=== PATIENT | female | born 1980 | race Caucasian/White ===

== ENCOUNTER 2018-04-13 20:35 | Emergency (ER) | payer OTHER, MEDICAID, BC ==
[2018-04-13 21:40] LABS: BASO % 0.4 % (0.0-1.0); EOS # 0.1 10^3/uL (0.0-0.50); HEMATOCRIT 44.4 % (36.0-47.0); HEMOGLOBIN 15.8 g/dl (12.0-15.5); IMMATURE GRANULOCYTE % 0.4 % (0-3.0); LYMPH # 3.1 10^3/uL (1.5-4.5); LYMPH % 31.2 % (24.0-44.0); MEAN CORPUSCULAR HEMOGLOBIN 32.7 pg (27.0-33.0); MEAN CORPUSCULAR HGB CONC 35.6 g/dl (32.0-36.5); MEAN CORPUSCULAR VOLUME 91.9 fl (80.0-96.0); MONO # 0.7 10^3/uL (0.0-0.8); MONO % 6.8 % (0.0-5.0); NEUTROPHILS % 60.2 % (36.0-66.0); PLATELET COUNT, AUTOMATED 223 10^3/uL (150-450); RED BLOOD COUNT 4.83 10^6/uL (4.00-5.40); RED CELL DISTRIBUTION WIDTH 11.6 % (11.5-14.5); WHITE BLOOD COUNT 9.9 10^3/uL (4.0-10.0)
[2018-04-13 21:41] LABS: KETONE, URINE AUTO RFX NEGATIVE (NEGATIVE); LEUKOCYTE ESTERASE UR AUTO RFX 3+ (NEGATIVE); MUCUS, URINE RFX SMALL (NEGATIVE); NITRITE, URINE AUTO RFX NEGATIVE (NEGATIVE); RBC, URINE AUTO RFX 3 /HPF (0-3); SPECIFIC GRAVITY UR AUTO RFX 1.005 (1.002-1.035); SQUAM EPITHELIAL CELL UR AURFX 3 /HPF (0-6); WBC, URINE AUTO RFX 61 /HPF (0-3)
[2018-04-13 21:44] LABS: INR 0.93; PROTHROMBIN TIME 12.6 SECONDS (12.1-14.4)
[2018-04-13] MEDS: ONDANSETRON 4MG/2ML VIAL (J2405) IV (21:44)
[2018-04-13] MEDS: MORPHINE 4 MG/ML 1ML VIAL/SYRINGE (J2270) IV (21:44)
[2018-04-13] MEDS: NS 1,000 ML IV (21:44)
[2018-04-13 21:48] LABS: ALBUMIN 3.9 GM/DL (3.2-5.2); ALBUMIN/GLOBULIN RATIO 0.93 (1.00-1.93); ALKALINE PHOSPHATASE 69 U/L (45-117); ALT/SGPT 16 U/L (12-78); ANION GAP 8 MEQ/L (8-16); AST/SGOT 9 U/L (7-37); BILIRUBIN,DIRECT 0.2 MG/DL (0.0-0.2); BILIRUBIN,TOTAL 0.6 MG/DL (0.2-1.0); BLOOD UREA NITROGEN 13 MG/DL (7-18); CALCIUM LEVEL 9.3 MG/DL (8.5-10.1); CARBON DIOXIDE LEVEL 27 MEQ/L (21-32); CHLORIDE LEVEL 99 MEQ/L (98-107); CREATININE FOR GFR 0.99 MG/DL (0.55-1.30); GLOMERULAR FILTRATION RATE > 60.0 (>60); GLUCOSE, FASTING 315 MG/DL (70-100); LIPASE 462 U/L (73-393); POTASSIUM SERUM 4.1 MEQ/L (3.5-5.1); SODIUM LEVEL 134 MEQ/L (136-145); TOTAL PROTEIN 8.1 GM/DL (6.4-8.2)
[2018-04-13] MEDS: CIPROFLOXACIN 500 MG TAB PO (22:50)
[2018-04-13] MEDS: MAGNESIUM CITRATE 300 ML BTL PO (22:50)
== END 2018-04-13 22:56 | disposition home or self-care (01) ==
LOC: M ED 20:35
DX: N39.0 Urinary tract infection, site not specified (principal); K59.00 Constipation, unspecified; K85.90 Acute pancreatitis without necrosis or infection, unspecified; Z88.8 Allergy status to other drugs, medicaments and biological substances; F17.210 Nicotine dependence, cigarettes, uncomplicated
CPT/HCPCS: J2270

== ENCOUNTER → 2018-07-03 | Outpatient (REF) | payer OTHER ==
[~2018-07-03] MED LIST: CIPR-249 PO; TRAM50TA2 PO
== END ==
LOC: M SFHCADAM 13:42
PROVIDERS: ATTEND Family Medicine
DX: E66.9 Obesity, unspecified (principal); R63.1 Polydipsia; F41.9 Anxiety disorder, unspecified

== ENCOUNTER → 2018-07-10 | Outpatient (REF) | payer OTHER ==
[2018-07-15 10:12] LABS: HPV LOW VOL RFLX Negative (Negative)
== END ==
LOC: M LAB REF 18:01
PROVIDERS: ATTEND Obstetrics & Gynecology
DX: Z12.4 Encounter for screening for malignant neoplasm of cervix (principal)

== ENCOUNTER → 2018-07-15 | Outpatient (CLI) | payer OTHER ==
--- NOTE | 2018-07-16 05:42 | REP ---
Clinical: Pelvic and perineal pain . Technique: Transabdominal pelvic ultrasound followed by transvaginal examination for better evaluation of the endometrium and adnexa with color Doppler evaluation of the ovaries. Findings: Bladder is unremarkable and measures 9.7 x 7.4 x 7.3 cm . Heterogeneous anteverted uterus measures 9.2 x 4.5 x 5.3 cm and includes few scattered parenchymal calcifications and subcentimeter Nabothian cysts. The endometrial complex measures 6.1 mm thickness. No discrete uterine or endometrial abnormalities are appreciated. Bilateral ovaries are normal in appearance and vascularity without evidence for torsion. Right ovary measures 2.6 x 1.6 x 2.3 cm ; R I = 0.50 . Left ovary measures 2.6 x 2.4 x 1.9 cm ; R I = 0.51 . No pelvic fluid or adnexal mass lesion. Impression: 1. Heterogenous uterus without significant discrete abnormality appreciated. 2. Normal ovaries without torsion. Electronically Signed by Deven Vail MD 07/16/2018 05:34 A
== END ==
LOC: M RAD 14:22
PROVIDERS: ATTEND Obstetrics & Gynecology
DX: N85.8 Other specified noninflammatory disorders of uterus (principal)

== ENCOUNTER 2018-09-05 08:31 | Day surgery (SDC) | payer OTHER ==
[~2018-09-05] VITALS: Ht 175.3 cm; Wt 115.4 kg
[~2018-09-05 08:31] MED LIST changes: +LIDOCAINE 1% MDV 20ML VIAL SQ PRN; +LR 1,000 ML IV ONE; +MIDAZOLAM INJ 2 MG/2 ML VIAL (J2250) As Ordered ONE; +OXYC1TAB23 PO; +fentaNYL 250 MCG/5 ML INJECTION (J3010) As Ordered ONE
[2018-09-05] MEDS ORDERED: PROPOFOL 200 MG/20 ML VIAL As Ordered ONE (08:38)
[2018-09-05] MEDS ORDERED: LIDOCAINE 2% INJ 100 MG/5 ML SDV (FOR ANES.) As Ordered ONE (08:41)
[2018-09-05] MEDS ORDERED: ONDANSETRON 4MG/2ML VIAL (J2405) As Ordered ONE (08:42)
[2018-09-05] MEDS ORDERED: KETOROLAC 60 MG/2 ML VIAL (J1885) As Ordered ONE (08:44)
[2018-09-05] MEDS ORDERED: dexameTHASONE 4 MG/ML 1ML VIAL (J1100) As Ordered ONE (08:44)
[2018-09-05] MEDS ORDERED: ACETAMINOPHEN 1000MG 100ML IV BTL (OFIRMEV) (J0131 PER 10MG) As Ordered ONE (08:45)
[2018-09-05] MEDS ORDERED: ROCURONIUM BROMIDE 50 MG/5 ML VIAL As Ordered ONE ×3 (08:45→11:20)
[2018-09-05 09:03] LABS: HEMATOCRIT 44.3 % (36.0-47.0); HEMOGLOBIN 15.3 g/dl (12.0-15.5); MEAN CORPUSCULAR HEMOGLOBIN 32.5 pg (27.0-33.0); MEAN CORPUSCULAR HGB CONC 34.5 g/dl (32.0-36.5); MEAN CORPUSCULAR VOLUME 94.1 fl (80.0-96.0); PLATELET COUNT, AUTOMATED 212 10^3/uL (150-450); RED BLOOD COUNT 4.71 10^6/uL (4.00-5.40); WHITE BLOOD COUNT 8.6 10^3/uL (4.0-10.0)
[2018-09-05] MEDS ORDERED: IBUP-1022 PO (09:10)
[2018-09-05 09:12] LABS: URINE PREG TEST NEGATIVE (NEGATIVE)
[2018-09-05] MEDS ORDERED: BUPIVACAINE HCL 0.25% 30 ML VIAL As Ordered ONE (09:52)
[2018-09-05] MEDS ORDERED: METHYLENE BLUE 0.5% (5MG/ML) 10 ML AMP (PROVAYBLUE)(Q9968 PER 1MG) As Ordered ONE (09:52)
[2018-09-05] MEDS ORDERED: SUGAMMADEX SODIUM 500 MG/5 ML VIAL (BRIDION) As Ordered ONE (11:08)
[2018-09-05] MEDS ORDERED: fentaNYL 100 MCG/2 ML INJECTION (J3010) As Ordered ONE ×2 (12:31→13:26)
[2018-09-05] MEDS ORDERED: PERCOCET 5MG/325MG TAB As Ordered ONE (13:21)
[2018-09-05] MEDS: PERCOCET 5MG/325MG TAB PO PRN ×2 (13:21→13:53)
[2018-09-05] MEDS: fentaNYL 100 MCG/2 ML INJECTION (J3010) IV PRN ×2 (13:25→13:40)
[2018-09-05] MEDS ORDERED: LR 1,000 ML IV SCH (13:45)
[2018-09-05] MEDS ORDERED: METOCLOPRAMIDE INJ 10MG/2ML VIAL (J2765) IV PRN (13:45)
[2018-09-05] MEDS ORDERED: MEPERIDINE INJ 25 MG/ML VIAL (J2175) IV PRN (13:45)
[2018-09-05] MEDS ORDERED: ONDANSETRON 4MG/2ML VIAL (J2405) IV PRN (13:45)
[2018-09-05] MEDS ORDERED: IBUPROFEN 800 MG TAB As Ordered ONE (14:39)
[2018-09-05] MEDS ORDERED: IBUPROFEN 800 MG TAB PO ONE (15:00)
[2018-09-05] MEDS ORDERED: MORPHINE 4 MG/ML 1ML VIAL/SYRINGE (J2270) IV PRN (15:45)
[2018-09-05 17:15] VITALS: BP 129/76
--- NOTE | 2018-09-06 10:35 | RO ---
DATE OF OPERATION: 09/05/2018 PREOPERATIVE DIAGNOSIS: Chronic pelvic pain. POSTOPERATIVE DIAGNOSES: 1. Chronic pelvic pain. 2. Ventral hernia. PROCEDURES PERFORMED: 1. Robotic-assisted laparoscopic hysterectomy. 2. Bilateral salpingectomy. 3. Lysis of adhesions. 4. Cystoscopy. SURGEON: Carlene Villarreal MD HOUSING INSPECTOR: KRANTHI Chauhan ANESTHESIA: General endotracheal anesthesia. ESTIMATED BLOOD LOSS: 50 mL. INTRAVENOUS FLUIDS: 1300 mL of Lactated Ringer's solution. URINE OUTPUT: 150 mL. PREOPERATIVE ANTIBIOTICS: 2 grams Ancef. INFECTION CLASSIFICATION: 2 SPECIMENS: Cervix, uterus, bilateral fallopian tubes. OPERATIVE FINDINGS: Patient with normal appearing uterus, bilateral adnexa, fallopian tubes with Filshie clips bilaterally, omentum adhesions to the anterior abdominal wall, approximately a 3-4 cm abdominal wall defect consistent with the incisional hernia. Cystoscopic findings revealed normal bladder mucosa, no foreign objects, bilateral ureteral jets were observed. DESCRIPTION OF OPERATION: After informed consent was obtained and written consent was reviewed, the patient was brought to the operating room where she was placed under general tracheal anesthesia. She was then prepped and draped in a normal sterile fashion. A time out operating room was performed identifying the patient, procedure be performed as well as drug allergies. A speculum was placed revealing the cervix. Anterior and posterior aspect of the cervix was stitched with #0 Vicryl. A medium VCare uterine manipulator was then advanced through cervical os, then insufflated with 7 mL of air. The cervical cap as well as vaginal sleeve was advanced down to the vagina. The speculum was then removed. Kuo catheter was placed and set to gravity. Gloves were changed and attention was turned to the patient's abdomen where a Veress needle was placed through the umbilicus. A pneumoperitoneum was obtained with CO2 gas. The supraumbilical area was infused with 0.25% Marcaine. An incision was made in this area and an 8 mm trocar and sleeve was advanced through this incision. The laparoscope was then replaced revealing intra-abdominal placement. Three additional port sites were placed, one to the right side parallel to the umbilicus and this area was infused with 0.25% Marcaine. An incision was made in this area and an 8 mm trocar and sleeve was advanced through this incision under direct visualization. Two additional port sites were placed to the left side of the patient, one parallel to the umbilicus and the other slightly above. Each of these areas infused with 0.25% Marcaine. Incision was made in each one of these areas and 8 mm trocars and sleeves were advanced in these incisions under visualization. Next, the da Dre was docked utilizing a camera arm and two operative arms. Utilizing vessel sealer lysis adhesions was performed releasing the omentum from the anterior abdominal wall. Next, the mesosalpinx bilaterally were cauterized and ligated with good hemostasis noted. The utero-ovarian ligaments bilaterally were cauterized and ligated with good hemostasis noted. The round ligaments on both sides were cauterized and ligated with good hemostasis noted. The anterior leaf of the broad ligaments were then dissected along the bladder creating a bladder flap. The remainder of the broad and cardinal ligaments were then cauterized and ligated with good hemostasis noted. The uterine vessels were then skeletonized bilaterally, and were cauterized and ligated, once again with good hemostasis noted. Next, using Endo monopolar scissors, anterior and posterior colpotomies were made and the uterus was removed vaginally, including bilateral fallopian tubes. The surgical sites were then irrigated and suctioned. The vaginal cuff was closed utilizing #0 V-Loc suture in a running nonlocking fashion. Surgical sites were inspected and noted be hemostatic. Laure was then applied over the surgical field. The da Dre was then undocked and a cystoscopy was performed. Kuo catheter was removed. The cystoscope was then advanced transurethrally into the bladder demonstrating bilateral ureteral jets with normal bladder mucosa. No foreign objects. The bladder was then drained. Attention was then to the patient's abdomen after gloves were changed and all four incisions closed with #4-0 Monocryl and dressed with DERMABOND. The patient was then awakened from general anesthesia and taken to recovery in stable condition. Counts were correct. Meaghan Pompa, my surgical services director, played an essential role during the surgery. She assisted with port placement, manipulation of the uterus, as well as removal of the uterus and port closure.
[2018-09-10] MEDS ORDERED: OXYC1TAB23 PO (13:39)
== END 2018-09-05 17:20 | disposition home or self-care (01) ==
LOC: M SDC 08:31
PROVIDERS: ATTEND Obstetrics & Gynecology
DX: N72 Inflammatory disease of cervix uteri (principal); R10.2 Pelvic and perineal pain; K43.9 Ventral hernia without obstruction or gangrene; F41.9 Anxiety disorder, unspecified; F17.210 Nicotine dependence, cigarettes, uncomplicated
CPT/HCPCS: 36415; 58571; 84703; 85027; 86850; 86900; 86901; 88307; J0131; J0690; J1100; J2250; J2270; J2405; J3010; Q9968

== ENCOUNTER → 2019-02-16 | Outpatient (REF) | payer OTHER ==
[~2019-02-16] MED LIST changes: +IBUP-1022 PO; -LIDOCAINE 1% MDV 20ML VIAL SQ PRN; -LR 1,000 ML IV ONE; -MIDAZOLAM INJ 2 MG/2 ML VIAL (J2250) As Ordered ONE; -fentaNYL 250 MCG/5 ML INJECTION (J3010) As Ordered ONE
== END ==
LOC: M SFHCPLAZ 11:57
PROVIDERS: ATTEND Dermatology
DX: D28.0 Benign neoplasm of vulva (principal)

== ENCOUNTER → 2019-03-11 | Outpatient (REF) | payer OTHER | LOC: M LAB REF 08:51 | PROVIDERS: ATTEND Dermatology | DX: D23.72 Other benign neoplasm of skin of left lower limb, including hip (principal) ==

== ENCOUNTER → 2019-03-19 | Outpatient (REF) | payer OTHER | LOC: M SFHCDERM 12:11 | PROVIDERS: ATTEND Dermatology | DX: L08.9 Local infection of the skin and subcutaneous tissue, unspecified (principal) ==

== ENCOUNTER → 2019-03-19 | Outpatient (REF) | payer OTHER | LOC: M LAB REF 18:23 | PROVIDERS: ATTEND Dermatology | DX: L08.9 Local infection of the skin and subcutaneous tissue, unspecified (principal) ==

== ENCOUNTER → 2019-04-01 | Outpatient (REF) | payer OTHER | LOC: M LAB REF 11:19 | PROVIDERS: ATTEND Dermatology | DX: L03.119 Cellulitis of unspecified part of limb (principal) ==

== ENCOUNTER → 2019-04-09 | Outpatient (REF) | payer OTHER | LOC: M LAB REF 18:46 | PROVIDERS: ATTEND Dermatology | DX: L03.119 Cellulitis of unspecified part of limb (principal) ==